=== PATIENT | male | born 1965 | race African-American/Black ===

== ENCOUNTER 2016-05-28 07:55 | Emergency (ER) | payer SELFPAY | END 2016-05-28 11:19 | disposition home or self-care (01) | LOC: CED 07:55 | DX: T78.3XXA Angioneurotic edema, initial encounter (principal); I10 Essential (primary) hypertension; F17.210 Nicotine dependence, cigarettes, uncomplicated; Z88.8 Allergy status to other drugs, medicaments and biological substances | CPT/HCPCS: 96372; 96374; 96375; 99284; J0171; J1200; J2930 ==